=== PATIENT | female | born 1980 | race Caucasian/White ===

== ENCOUNTER 2018-03-10 06:52 | Day surgery (SDC) | payer MEDICAID ==
[~2018-03-10 06:52] MED LIST: CEFAZOLIN 1 GM/50 ML (PMX) 50 ML IVPB; SOD CHLORIDE 0.9% 1,000 ML IV
[2018-03-10 08:38] LABS: INR 0.98; PROTIME 13.1 Sec (11.9-14.9)
[2018-03-10 08:39] LABS: PARTIAL THROMBOPLASTIN TIME 29.7 Sec (23.0-35.0)
[2018-03-10] MEDS ORDERED: HYDROmorphONE 1 MG/5 ML IV SYRINGE IV ×3 (09:30)
[2018-03-10] MEDS ORDERED: DIPHENHYDRAMINE 50 MG INJ IV (09:30)
[2018-03-10] MEDS ORDERED: OXYCODONE/ACETAMINOPHEN (5/325) TAB PO (09:30)
[2018-03-10] MEDS ORDERED: FENTAnyl 50 MCG/ML VIAL (09:54)
[2018-03-10] MEDS ORDERED: PROPOFOL 20 ML ×2 (09:54→10:14)
[2018-03-10] MEDS ORDERED: ONDANSETRON 4 MG INJ (09:54)
[2018-03-10] MEDS ORDERED: METOCLOPRAMIDE 10 MG INJ (09:55)
[2018-03-10] MEDS ORDERED: CEFAZOLIN 1 GM INJ (09:55)
[2018-03-10] MEDS ORDERED: KETOROLAC 30 MG INJ (10:26)
[2018-03-10] MEDS ORDERED: BUPIVACAINE 0.5% (SDV) 30 ML INJ (10:27)
[2018-03-10] MEDS: BUPIVACAINE 0.5% 30 ML VIAL INJ (10:35)
[2018-03-10] MEDS: MEPERIDINE 25 MG INJ IV (11:31)
[2018-03-10] MEDS: ONDANSETRON 4 MG INJ IV (11:34)
[2018-03-10] MEDS: OXYCODONE/ACETAMINOPHEN (5/325) TAB PO (12:25)
== END 2018-03-10 12:41 | disposition home or self-care (01) ==
LOC: SDS 06:52
DX: D24.1 Benign neoplasm of right breast (principal)
CPT/HCPCS: 19120; 85610; 85730; 88307